=== PATIENT | male | born 1980 | race Two or more races ===

== ENCOUNTER 2017-03-19 01:21 | Emergency (ER) | payer BC ==
[~2017-03-19] VITALS: Ht 185.4 cm; Wt 83.5 kg
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
--- NOTE | 2017-03-19 01:55 | NUR ---
pt transported to radiology for ct's.
[2017-03-19] MEDS ORDERED: TDAP [DIPH/PERTUSSIS/TET] 0.5 ML VIAL IM ONE ×2 (02:00→03:55)
--- NOTE | 2017-03-19 02:16 | NUR ---
pt back from radiology. pending ct results.
--- NOTE | 2017-03-19 03:05 | NUR ---
ct results received. er aware.
[2017-03-19] MEDS ORDERED: LIDOCAINE 2%-EPI 1:100,000 30 ML VIAL ONE (03:15)
--- NOTE | 2017-03-19 03:16 | NUR ---
er md at bedside for laceration repair.
--- NOTE | 2017-03-19 03:53 | NUR ---
laceration repair done. pt tolerated procedure well. emt at bedside for wound care.
--- NOTE | 2017-03-19 04:01 | NUR ---
Patient discharged to home in stable condition. Written and verbal after care instructions given. Patient verbalizes understanding of instruction. ambulatory with a steady gait noted. pt aaox4 no acute distress noted, resp even and unlabored. pt at bedside to take pt home.
[2017-03-19 04:02] VITALS: BP 132/75
== END 2017-03-19 04:02 | disposition home or self-care (01) ==
LOC: ER 01:24
DX: S09.90XA Unspecified injury of head, initial encounter (principal); S02.2XXA Fracture of nasal bones, initial encounter for closed fracture; S01.81XA Laceration without foreign body of other part of head, initial encounter; E11.9 Type 2 diabetes mellitus without complications; Y04.2XXA Assault by strike against or bumped into by another person, initial encounter; Y93.89 Activity, other specified; Y92.89 Other specified places as the place of occurrence of the external cause; Y99.9 Unspecified external cause status
CPT/HCPCS: 12013; 70450; 70486; 72125; 90471; 90715; 99284; A4606; A6403; J3490; Z7610; A6402